=== PATIENT | male | born 1960 | race Caucasian/White ===

== ENCOUNTER 2022-08-30 06:14 | Day surgery (SDC) | payer OTHER, SELFPAY ==
[2022-08-30] VITALS (11 sets, daily range): BP systolic 132–152; BP diastolic 72–95; PULSE 63–71; RESP 16; TEMP 36.3–36.7; O2SAT 94–100; BMI 26.5
[2022-08-30] MEDS: LACTATED RINGERS 1000 ML 1,000 ML 100 ML IV ×2 (07:00→09:28)
[2022-08-30] MEDS: SODIUM CHLORIDE 0.9 % (FLUSH) 10 ML SYRINGE IVF (07:00)
[2022-08-30] MEDS: CEFAZOLIN 2 GM INJ IVP (07:51)
--- NOTE | 2022-08-30 09:53 | W.ANESCHARGE ---
Anesthesia Charges Start Date/Time Anesthesia Start Date: 08/30/22 Anesthesia Start Time: 07:27 Stop Date/Time Anesthesia Stop Date: 08/30/22 Anesthesia Stop Time: 10:45
[2022-08-30] MEDS: BUPIVACAINE 0.25% 30 ML INJECTION (10:23)
--- NOTE | 2022-08-30 10:48 | W.ANESCHARGE ---
Anesthesia Charges Start Date/Time Anesthesia Start Date: 08/30/22 Anesthesia Start Time: 07:27 Stop Date/Time Anesthesia Stop Date: 08/30/22 Anesthesia Stop Time: 10:45
--- NOTE | 2022-08-30 12:25 | P.GSOP_ITS ---
Operative Note Date of procedure: 08/30/22 Pre-op diagnosis: 1. Symptomatic left inguinal hernia. Post-op diagnosis: 1. Incarcerated left inguinal hernia containing sigmoid colon. Type of Procedure: 1. Laparoscopic converted to open left inguinal hernia repair with mesh. Indications: 61 y.o. male was seen in clinic for evaluation of a left inguinal bulge several months prior to today. Patient noticed swelling in the left groin. This was more prominent with heavy lifting and he started to notice pain over the bulge. The bulge has been getting bigger. He occasionally felt gas in the bulge. On clinical exam with the patient standing up, a small left inguinal hernia was noted. Given patient's clinical history and his physical exam, a laparoscopic inguinal hernia repair was recommended. The procedure was discussed in detail. The risks associated procedure including infection, bleeding, injury to preperitoneal organs, and possible conversion to open procedure were all discussed with the patient, and he agreed to proceed. Procedure Description: After discussing the risks and benefits of the procedure, the patient signed informed consent.? The operative site was marked and the patient was brought to the operating room and placed on the operating table in supine position.? Care was taken to pad the patient's pressure points.?? The patient was then intubated by anesthesia.?? The operative site was then prepped and draped in the usual sterile fashion.? A time-out was then performed. An infraumbilical skin incision was made with a scalpel and subcutaneous tissues were dissected with electrocautery. Anterior sheath was incised with electrocautery and rectus muscle was retracted laterally. A 12 mm spacemaker dissector system was introduced into the incision and advanced over the posterior sheath. Preperitoneal space was dissected with manually insufflating air under direct visualization. Once the tissues were dissected, the balloon was deflated and removed.? A laparoscopic balloon was placed into preperitoneal space and balloon was inflated. Preperitoneal space was insufflated with air. No bleeding was identified upon examination of preperitoneal space. We then placed two 5 mm ports suprapubically under direct visualization. ? The preperitoneal tissues were bluntly dissected with graspers.? The pubic bone was identified and? cleared from preperitoneal tissue.?? Inferior epigastrics on left?side were retracted towards the abdominal wall. The peritoneum appeared to be densely adherent to the spermatic cord. With blunt dissection multiple small openings were created in the hernia sac. These were partially closed with 5 mm clips. I was not able to separate the hernia sac from the spermatic cord. Multiple attempts were made at reducing the hernia and mobilizing the hernia sac off spermatic cord but I was not successful. Through one of the peritoneal openings I was able to see that sigmoid colon was incarcerated in the inguinal canal. Decision was made to convert to an open left inguinal hernia repair. All laparoscopic ports were removed. An oblique incision was made just above and medial to the left inguinal ligament. Subcutaneous tissue was dissected to external obliques. Small incision was made through the external oblique aponeurosis with scalpel. I then used Metzenbaum scissors to dissect under external obliques and extend my incision. Mosquito clamps were placed on the edges of external oblique exposing the inguinal floor. The left Ilioinguinal nerve was identified and was going through the plain of dissection. The nerve was divided proximally and distally and a 3 cm segment of it was excised. This was not sent to pathology. I then identified the spermatic cord and the hernia sac. Dense adhesions were noted between the spermatic cord and hernia sac. I bluntly dissected subcutaneous tissues in order to place Clif drain around the cord structures. Cremasteric fibers were peeled off and dissected off the hernia sac and cord structures. This hernia was indirect. It was difficult to mobilize the hernia sac off the spermatic cord due to dense adhesions. Finally when the spermatic cord was off the hernia sac, the Clif drain was placed around the spermatic cord. The hernia sac was entered and sigmoid colon and epiploic fat was densely adherent to the inside of the hernia sac. These adhesions were taken down with cautery and Metzenbaum scissors. Care was taken to avoid injury to the sigmoid colon. When the sigmoid colon was free, it was then pushed intra-abdominally. The multiple peritoneal openings created with laparoscopic repair were noted. The peritoneal openings of the hernia sac were then closed with a running 3-0 Vicryl suture. A stitch using 2 0 Vicryl was placed near the base of the hernia sacs through the sac and the hernia sac was tied off. The redundant hernia sac was excised with cautery. This was indirect hernia with no evidence of direct component. Surgical field was examined for bleeding, and hemostasis achieved with Vicryl ties and cautery. A Bard mesh plug was inserted through the internal ring and secured to the adjacent tissues with interrupted 0-0 Neurolon sutures. A Bard mesh onlay was also used for hernia repair. The mesh onlay was sutured in place with interrupted 0-0 Neurolon sutures to the conjoint tendon medially and shelving edge laterally, pubic tubercle inferiorly. Simple interrupted sutures were placed using 0-0 Neurolon at the base of internal inguinal ring making it only large enough to fit a tip of one finger through. Spermatic cord was placed back into scrotum. [place] drain was removed. External oblique aponeurosis was closed with a running 3-0 Vicryl. Additional local anesthetic was injected into subcutaneous tissues. Katja's fascia and subcutaneous tissue was re- approximated with interrupted Vicryl stitches. Skin incision was closed with 4-0 Monocryl subcuticular stitch. Anterior sheath of the infraumbilical incision was then closed with a running 0- 0 vicryl suture. Skin was closed with 4-0 monocryl using subcuticular stitch. Steri strips were applied over the laparoscopic?incisions. ? Steri strips and sterile dressing were applied over incision. All counts were correct at the end of the case. Patient tolerated this procedure well and was transferred to PACU in stable condition. Findings: Moderately-sized left inguinal hernia with incarcerated sigmoid colon. I was then able to reduce the hernia laparoscopically and the procedure was converted to open. Anesthesia: GETA Surgeon: Bean Moeller MD Estimated blood loss (mL): 15 Condition: stable Disposition: PACU
== END 2022-08-30 12:30 | disposition home or self-care (01) ==
PROVIDERS: Visit Provider Surgery
PROC: (CPT 49650; principal; 2022-08-30 07:30)
DX: K40.30 Unilateral inguinal hernia, with obstruction, without gangrene, not specified as recurrent (principal); Z53.31 Laparoscopic surgical procedure converted to open procedure
CPT/HCPCS: 49507; 00830; 00860; C1781; J0330; J0690; J1100; J1170; J2250; J2405; J2704; J3010; J3490; J7120